=== PATIENT | female | born 1945 | race Caucasian/White ===

== ENCOUNTER → 2016-06-19 | Outpatient (CLI) | payer MEDICARE, OTHER | LOC: WI 09:23 | PROVIDERS: ATTEND Internal Medicine Medical Oncology | DX: M81.0 Age-related osteoporosis without current pathological fracture (principal) | CPT/HCPCS: 77080 ==

== ENCOUNTER 2018-05-05 20:56 | Inpatient (IN) | payer MEDICARE, OTHER ==
[2018-05-05] MEDS ORDERED: CEFAZOLIN 1 GM/D5W RTU 1 GM/50 ML RTUPB IV ONE (22:19)
[2018-05-05] MEDS ORDERED: DIPH/PERTUSS(ACELL)/TETANUS VAC/PF 0.5 ML SYR (>=10YO) IM ONE (22:20)
--- NOTE | 2018-05-05 22:29 | RADIOLOGY REPORT (SQ) ---
CT HEAD WITHOUT IV CONTRAST HISTORY: Fall. Headache. COMPARISON: None. TECHNIQUE: CT scan of the brain without IV contrast. This exam was performed according to our departmental dose-optimization program, which includes automated exposure control, adjustment of the mA and/or kV according to patient size and/or use of iterative reconstruction technique. FINDINGS: The ventricles, cisterns, and sulci are unremarkable. No focal white matter lesions are seen. No evidence of acute infarction, intracranial hemorrhage, extra-axial fluid collection, or midline shift. No air-fluid levels are seen in the paranasal sinuses to suggest acute sinusitis. IMPRESSION: No acute intracranial findings.
--- NOTE | 2018-05-05 22:32 | RADIOLOGY REPORT (SQ) ---
2 VIEWS OF THE RIGHT RIBS AND AP CHEST. HISTORY: Rib pain. COMPARISON: None. FINDINGS/IMPRESSION: There are nondisplaced fractures of the right eighth and ninth posterolateral ribs. The surrounding lungs are clear. No pneumothorax or pleural effusions are seen. IMPRESSION: Nondisplaced fractures of the right eighth and ninth posterolateral ribs.
[2018-05-05 22:58] LABS: ABSOLUTE LYMPHOCYTES (AUTO) 0.6 10^3/uL (0.5-4.7); ABSOLUTE MONOCYTES (AUTO) 1.1 10^3/uL (0.1-1.4); BASOPHILS % (AUTO) 0.3 % (0-2); EOSINOPHILS % (AUTO) 0.2 % (0-6); HEMATOCRIT 37.2 % (36.0-47.0); LYMPHOCYTES % (AUTO) 6.1 % (13-45); MEAN CORPUSCULAR HEMOGLOBIN 29.9 pg (27.0-33.4); MEAN CORPUSCULAR VOLUME 85 fl (80-97); MONOCYTES % (AUTO) 11.1 % (3-13); PLATELET COUNT 201 10^3/uL (150-450); RED BLOOD COUNT 4.35 10^6/uL (3.72-5.28); RED CELL DISTRIBUTION WIDTH 12.9 % (11.5-14.0); SEGMENTED NEUTROPHILS % (AUTO) 82.3 % (42-78); TOTAL CELLS COUNTED % (AUTO) 100 %; WHITE BLOOD COUNT 9.8 10^3/uL (4.0-10.5)
[2018-05-05 23:04] LABS: INTERNATIONAL RATION (INR) 0.87; PROTHROMBIN TIME 12.3 SEC (11.4-15.4)
[2018-05-05 23:24] LABS: ALANINE AMINOTRANSFERASE 39 U/L (9-52); ALBUMIN 4.1 g/dL (3.5-5.0); ALKALINE PHOSPHATASE 79 U/L (38-126); ANION GAP 6 (5-19); ASPARTATE AMINO TRANSFERASE 29 U/L (14-36); BILIRUBIN,TOTAL 0.4 mg/dL (0.2-1.3); BLOOD UREA NITROGEN 27 mg/dL (7-20); CALCIUM 10.2 mg/dL (8.4-10.2); CARBON DIOXIDE 24 mmol/L (22-30); CHLORIDE 101 mmol/L (98-107); CREATINE KINASE 105 U/L (30-135); GLUCOSE 123 mg/dL (75-110); POTASSIUM 4.5 mmol/L (3.6-5.0); SODIUM 131.3 mmol/L (137-145); TOTAL PROTEIN 6.1 g/dL (6.3-8.2)
[2018-05-05 23:35] LABS: CREATINE KINASE MB 1.57 ng/mL (<4.55); TROPONIN I < 0.012 ng/mL
[2018-05-05] MEDS ORDERED: NORMAL SALINE 1000 ML 1,000 ML IV ONE (23:39)
[2018-05-06 02:26] LABS: APPEARANCE,URINE CLEAR; BILIRUBIN,URINE NEGATIVE (NEGATIVE); COLOR,URINE STRAW; GLUCOSE, URINE NEGATIVE (NEGATIVE); KETONES,URINE NEGATIVE (NEGATIVE); LEUKOCYTE ESTERASE,URINE NEGATIVE (NEGATIVE); NITRITE,URINE NEGATIVE (NEGATIVE); PROTEIN,URINE NEGATIVE (NEGATIVE); URINE SPECIFIC GRAVITY 1.008; UROBILINOGEN,URINE NEGATIVE mg/dL (<2.0)
--- NOTE | 2018-05-06 03:50 | ER Document Report ---
Entered by PAM WEST SCRIBE 05/06/18 0230 Acting as scribe for:DUKE COLEMAN DO ED General - General Chief Complaint: Fall Stated Complaint: FALL/BACK AND RIB PAIN, HEAD PAIN Time Seen by Provider: 05/05/18 21:48 Information source: Patient Notes: 73-year-old female that presents to the emergency department today with complaints of multiple syncopal episodes prior to arrival. Patient states she had no precipitating symptoms prior to her syncopal events. Patient now comp lains of right-sided chest wall pain which she states occurred after one of her syncopal events. Patient states she thinks she injured her chest wall when she fell when passing out. TRAVEL OUTSIDE OF THE [place] IN LAST 30 DAYS: No - Related Data Allergies/Adverse Reactions: Penicillins Allergy (Verified 05/05/18 21:07) Sulfa (Sulfonamide Antibiotics) Allergy (Verified 05/05/18 21:07) Past Medical History - General Information source: Patient - Social History Smoking Status: Former Smoker Chew tobacco use (# tins/day): No Frequency of alcohol use: daily fawn Drug Abuse: None Family History: Reviewed & Not Pertinent Patient has suicidal ideation: No Patient has homicidal ideation: No - Past Medical History Cardiac Medical History: Reports: Hx Hypertension Pulmonary Medical History: Reports: Hx Pneumonia Renal/ Medical History: Denies: Hx Peritoneal Dialysis Past Surgical History: Reports: Hx Cholecystectomy - 1979, Hx Orthopedic Surgery - L knee replacement 2012 Review of Systems - Review of Systems Constitutional: No symptoms reported EENT: No symptoms reported Cardiovascular: See HPI, Syncope Respiratory: No symptoms reported Gastrointestinal: No symptoms reported Genitourinary: No symptoms reported Female Genitourinary: No symptoms reported Musculoskeletal: See HPI, Other - right chest wall pain Skin: See HPI, Other - skin tears Hematologic/Lymphatic: No symptoms reported Neurological/Psychological: No symptoms reported -: Yes All other systems reviewed and negative Physical Exam - Vital signs Vitals: Temp Pulse Resp BP Pulse Ox 97.9 F 94 16 149/80 H 100 05/05/18 21:10 05/05/18 21:10 05/05/18 21:10 05/05/18 21:10 05/05/18 21:10 Interpretation: Normal - General General appearance: Alert In distress: None - HEENT Head: Normocephalic, Other - Tenderness to posterior head Eyes: Normal Extraocular movements intact: Yes Pupils: PERRL Mucous membranes: Normal Neck: Other - No midline tenderness to palpation - Respiratory Respiratory status: No respiratory distress Chest status: Tender - Right lateral lower chest wall tenderness to palpation Breath sounds: Normal Chest palpation: Normal - Cardiovascular Rhythm: Regular Heart sounds: Normal auscultation Murmur: No - Abdominal Inspection: Normal Distension: No distension Bowel sounds: Normal Tenderness: Nontender Organomegaly: No organomegaly - Extremities General upper extremity: Normal ROM, Normal strength, Other - Bilateral upper extremities with bruising and skin tears in various stages of healing General lower extremity: Normal ROM, Normal strength - Neurological Neuro grossly intact: Yes Cognition: Normal Orientation: AAOx4 Bethany Coma Scale Eye Opening: Spontaneous Beth[place] Coma Scale Verbal: Oriented Candice Coma Scale Motor: Obeys Commands Bethany Coma Scale Total: 15 Speech: Normal Cranial nerves: Normal Cerebellar coordination: Normal Motor strength normal: LUE, RUE, LLE, RLE Sensory: Normal - Psychological Associated symptoms: Normal affect, Normal mood - Skin Skin Temperature: Warm Skin Moisture: Dry Skin Color: Normal Course - Re-evaluation Re-evalutation: 05/06/18 Patient is a 73-year-old female who had 2 episodes of syncope today of any lightheadedness, trouble breathing, or chest pain prior to. The first time, patient fell back and hit her head. The second time she fell downstairs. Chest x-ray showing 2 rib fractures. No acute findings on head CT. Patient has been given tetanus and Ancef for wounds. No acute findings on blood work except for some hyponatremia. Patient is very unstable on her feet. Discussed with the hospitalist service and will admit for syncope. Troponin negative. No acute findings and EKG. - Vital Signs Vital signs: Temp Pulse Resp BP Pulse Ox 97.9 F 94 17 159/95 H 100 05/05/18 21:10 05/05/18 21:10 05/06/18 03:01 05/06/18 03:01 05/06/18 03:01 - Laboratory Result Diagrams: 05/05/18 22:45 05/05/18 22:45 Laboratory results interpreted by me: 05/05/18 05/05/18 05/06/18 22:45 22:45 02:00 Seg Neutrophils % 82.3 H Lymphocytes % 6.1 L Sodium 131.3 L BUN 27 H Glucose 123 H Total Protein 6.1 L Urine Blood SMALL H - Diagnostic Test Radiology reviewed: Reports reviewed - EKG Interpretation by Me EKG shows normal: Sinus rhythm Rate: Normal Rhythm: NSR Discharge - Discharge Clinical Impression: Syncope and collapse, Skin tear Rib fractures Qualifiers: Encounter type: initial encounter Rib fracture type: multiple ribs Fracture type: closed Laterality: right Qualified Code(s): S22.41XA - Multiple fractures of ribs, right side, initial encounter for closed fracture Closed head injury Qualifiers: Encounter type: initial encounter Qualified Code(s): S09.90XA - Unspecified injury of head, initial encounter Condition: Stable Disposition: ADMITTED INPATIENT Admitting Provider: [facility] Admitted: Telemetry Scribe Attestation: 05/06/18 03:50 I personally performed the services described in the documentation, reviewed and edited the documentation which was dictated to the scribe in my presence, and it accurately records my words and actions. I personally performed the services described in the documentation, reviewed and edited the documentation which was dictated to the scribe in my presence, and it accurately records my words and actions.
[2018-05-06] MEDS ORDERED: ONDANSETRON 4 MG TAB.RAPDIS PO PRN (03:53)
[2018-05-06] MEDS ORDERED: MAG HYDROX/AL HYDROX/SIMETH SUSP 30 ML UDCUP PO PRN (03:53)
[2018-05-06] MEDS ORDERED: POTASSI CL 20 MEQ/D5-1/2NS 1L 1,000 ML IV PRN (03:53)
[2018-05-06] MEDS ORDERED: NALBUPHINE HCL INJ 10 MG/1 ML AMPULE IV PRN (03:59)
[2018-05-06] MEDS ORDERED: SCOPOLAMINE HYDROBROMIDE 1.5 MG PATCH.TD72 TD ONE (04:20)
--- NOTE | 2018-05-06 04:33 | PDOC H&P ---
History of Present Illness Admission Date/PCP: 05/06/2018 Patient complains of: Syncopal episodes x2 History of Present Illness: SAVAGE MCGEE is a 73 year old female who presents the emergency room with a 4-week history of balance disturbance and an acute syncopal episode x1 on the morning of 05/05/2018. She admits that for the last month she has been having difficulty with her balance and that she seems to constantly be off balance especially when she is trying to walk or stand. She is not sure that she always seems to fall to the left but it seems that is the way she usually fa lls. She has incurred several skin tears of her upper extremities in these numerous falls. He is being seen by Dr. Terrell who is evaluating pain in her right shoulder and arm and has found a cyst in her neck that is putting pressure on her spine with a recent MRI. On the day of admission she fell first in the kitchen and on that occasion she lost consciousness before she fell to the floor, her second fall was down several stairs but she was not unconscious at the time of that fall. She complains of numerous aches and pains that have developed since the time of the fall down the stairs. These include pain in her right groin, in the back of her head, in her right neck and shoulder and in her right chest laterally. She rates the pains as moderate and denies radiation from any of the areas of pain. She denies prior syncopal episodes and has not identified any aggravating or ameliorating factor for her syncope. In the emergency room she was found to have a negative CT scan of the head and chest x- ray showed rib fractures of the eighth and ninth right ribs. Because of patient's syncopal episode she was admitted for further evaluation and treatment. Past Medical History Cardiac Medical History: Reports: Hypertension Denies: Atrial Fibrillation, Coronary Artery Disease, DVT, Pulmonary Embolism Pulmonary Medical History: Reports: Pneumonia Denies: Asthma, Chronic Obstructive Pulmonary Disease (COPD) EENT Medical History: Reports: None Neurological Medical History: Denies: Multiple Sclerosis, Seizures Endocrine Medical History: Denies: Diabetes Mellitus Type 1, Diabetes Mellitus Type 2, Hyperthyroidism, Hypothyroidism Renal/ Medical History: Denies: Chronic Kidney Disease, Nephrolithiasis Malignancy Medical History: Reports: None GI Medical History: Denies: Cirrhosis, Hepatitis Musculoskeltal Medical History: Reports: Other - Cyst in the right posterior cervical region causing radiculopathy Denies: Arthritis, Gout Skin Medical History: Reports: Other - Multiple skin tears due to frequent falls Denies: Eczema, Psoriasis Psychiatric Medical History: Reports: General Anxiety Disorder Denies: Alcohol Dependency, Substance Abuse, Tobacco Dependency Traumatic Medical History: Denies: None Hematology: Denies: Anemia, Bleeding Tendencies Infectious Medical History: Reports: None Past Surgical History Past Surgical History: Reports: Cholecystectomy - 1979, Orthopedic Surgery - L knee replacement 2012 Social History Information Source: Patient Lives with: Family Smoking Status: Former Smoker Frequency of Alcohol Use: None Hx Recreational Drug Use: No Drugs: None Hx Prescription Drug Abuse: No - Advance Directive Resuscitation Status: Full Code Surrogate healthcare decision maker:: Son Family History Family History: Hypertension Parental Family History Reviewed: Yes Children Family History Reviewed: No Sibling(s) Family History Reviewed.: Yes Medication/Allergy Allergies/Adverse Reactions: Penicillins Allergy (Verified 05/05/18 21:07) Sulfa (Sulfonamide Antibiotics) Allergy (Verified 05/05/18 21:07) Review of Systems Constitutional: ABSENT: chills, fever(s) Eyes: ABSENT: visual disturbances, other - Ocular pain Ears: ABSENT: hearing changes, other - Ear pain Nose, Mouth, and Throat: ABSENT: mouth pain, sore throat Cardiovascular: PRESENT: chest pain - Right posterior lateral lower thoracic pain. ABSENT: dyspnea on exertion, edema, orthropnea, palpitations Respiratory: ABSENT: cough, dyspnea Gastrointestinal: ABSENT: abdominal pain, constipation, diarrhea, nausea, vomiting Genitourinary: ABSENT: dysuria, hematuria Musculoskeletal: ABSENT: deformity, joint swelling Integumentary: PRESENT: wounds - Multiple skin tears of the bilateral upper extremities, scalp laceration left occiput. ABSENT: pruritus, rash Neurological: PRESENT: other - Radicular pain right shoulder and upper arm. ABSENT: confusion, convulsions, memory loss, tremor(s) Psychiatric: PRESENT: anxiety. ABSENT: depression Endocrine: ABSENT: cold intolerance, heat intolerance Hematologic/Lymphatic: PRESENT: easy bleeding - With skin tears, easy bruising - Skin tears Physical Exam Vital Signs: Temp Pulse Resp BP Pulse Ox 97.9 F 94 18 162/97 H 100 05/05/18 21:10 05/05/18 21:10 05/06/18 02:01 05/06/18 02:01 05/06/18 02:01 Intake & Output 05/04/18 05/05/18 05/06/18 23:59 23:59 23:59 Intake Total 1000 Balance 1000 General appearance: PRESENT: no acute distress, cooperative Head exam: PRESENT: normocephalic. ABSENT: atraumatic - 2 cm laceration of the left occiput is noted Eye exam: PRESENT: conjunctiva pink, nystagmus - Severe, fast component to the left. ABSENT: scleral icterus Ear exam: PRESENT: normal external ear exam. ABSENT: bleeding, drainage Mouth exam: PRESENT: dry mucosa, neck supple Neck exam: ABSENT: thyromegaly, tracheal deviation Respiratory exam: PRESENT: chest wall tenderness - Tender over right posterior lateral lower ribs, clear to auscultation libia, symmetrical, unlabored Cardiovascular exam: PRESENT: RRR. ABSENT: clicks, gallop, rubs Pulses: PRESENT: normal radial pulses, normal dorsalis pedis pul Vascular exam: PRESENT: normal capillary refill. ABSENT: pallor GI/Abdominal exam: PRESENT: normal bowel sounds, soft Rectal exam: PRESENT: deferred Extremities exam: PRESENT: tenderness - Right groin region tender to palpation and range of motion. ABSENT: joint swelling, pedal edema Musculoskeletal exam: PRESENT: ambulatory. ABSENT: deformity, dislocation Neurological exam: PRESENT: alert, oriented to person, oriented to place, oriented to time, oriented to situation. ABSENT: CN II-XII grossly intact - Marked horizontal nystagmus is noted with the fast component to the left Psychiatric exam: PRESENT: appropriate affect, normal mood Skin exam: PRESENT: dry, jaundice, rash, urticaria, warm. ABSENT: other - 2 cm superficial left occipital scalp laceration as previously noted, not bleeding Results Laboratory Results: 05/05/18 22:45 05/05/18 22:45 05/05/18 05/05/18 05/06/18 22:45 22:45 02:00 WBC 9.8 RBC 4.35 Hgb 13.0 Hct 37.2 MCV 85 MCH 29.9 MCHC 35.0 RDW 12.9 Plt Count 201 Seg Neutrophils % 82.3 H Lymphocytes % 6.1 L Monocytes % 11.1 Eosinophils % 0.2 Basophils % 0.3 Absolute Neutrophils 8.0 Absolute Lymphocytes 0.6 Absolute Monocytes 1.1 Absolute Eosinophils 0.0 Absolute Basophils 0.0 Sodium 131.3 L Potassium 4.5 Chloride 101 Carbon Dioxide 24 Anion Gap 6 BUN 27 H Creatinine 0.82 Est GFR ( Amer) > 60 Est GFR (Non-Af Amer) > 60 Glucose 123 H Calcium 10.2 Total Bilirubin 0.4 AST 29 ALT 39 Alkaline Phosphatase 79 Total Protein 6.1 L Albumin 4.1 Urine Color STRAW Urine Appearance CLEAR Urine pH 6.0 Ur Specific Wol[place] 1.008 Urine Protein NEGATIVE Urine Glucose (UA) NEGATIVE Urine Ketones NEGATIVE Urine Blood SMALL H Urine Nitrite NEGATIVE Ur Leukocyte Esterase NEGATIVE Urine WBC (Auto) 1 Urine RBC (Auto) 0 05/05/18 05/05/18 22:45 22:45 Creatine Kinase 105 CK-MB (CK-2) 1.57 Troponin I < 0.012 Impressions: Head CT 05/05/18 21:50 IMPRESSION: No acute intracranial findings. Ribs w/Chest X-Ray 05/05/18 21:50 FINDINGS/IMPRESSION: There are nondisplaced fractures of the right eighth and ninth posterolateral ribs. The surrounding lungs are clear. No pneumothorax or pleural effusions are seen. IMPRESSION: Nondisplaced fractures of the right eighth and ninth posterolateral ribs. Assessment & Plan - Diagnosis (1) Acute labyrinthitis Qualifiers: Laterality: unspecified laterality Qualified Code(s): H83.09 - Labyrinthitis, unspecified ear Is this a current diagnosis for this admission?: Yes Plan: Patient be treated with a Transderm scopolamine patch initially to provide symptomatic relief. Further evaluation will be undertaken to confirm the diagnosis of acute labyrinthitis or to establish a different diagnosis as the etiology of this problem. This will include a MRI of the head. (2) Laceration of occipital region of scalp without complication Qualifiers: Encounter type: initial encounter Qualified Code(s): S01.01XA - Laceration without foreign body of scalp, initial encounter Is this a current diagnosis for this admission?: Yes Plan: Routine post repair wound cares will be followed according to the instructions given by the ER physician who is responsible for repairing laceration. (3) Right rib fracture Qualifiers: Encounter type: initial encounter Rib fracture type: multiple ribs Fracture type: closed Qualified Code(s): S22.41XA - Multiple fractures of ribs, right side, initial encounter for closed fracture Is this a current diagnosis for this admission?: Yes Plan: Patient will use Nubain 10 mg IV every 3 hours as needed for pain of rib fractures or other injuries. (4) Skin tear Is this a current diagnosis for this admission?: Yes Plan: Patient has dressings placed on her skin tears and these will be maintained and changed as required. She has received tetanus prophylaxis in the emergency room. (5) Syncope and collapse Is this a current diagnosis for this admission?: Yes Plan: Patient will be evaluated for syncope with a carotid Doppler study, and echocardiogram and an MRI of her brain. She will be observed on telemetry and a cardiology consult may be obtained at the discretion of her daytime hospitalist. - Time Time Spent: 30 to 50 Minutes Critical Time spent with patient: Less than 15 minutes Anticipated discharge: Home - Inpatient Certification Based on my medical assessment, after consideration of the patient's comorbidities, presenting symptoms, or acuity I expect that the services needed warrant INPATIENT care.: Yes I certify that my determination is in accordance with my understanding of Medicare's requirements for reasonable and necessary INPATIENT services [42 CFR 412.3e].: Yes Medical Necessity: Need Close Monitoring Due to Risk of Patient Decompensation, Need For Continuous Telemetry Monitoring, Need for Neurological Checks, Risk of Complication if Not Cared For in Hospital
[2018-05-06 05:21] LABS: CREATINE KINASE MB 2.63 ng/mL (<4.55); TROPONIN I 0.015 ng/mL
[2018-05-06] MEDS ORDERED: SCOPOLAMINE HYDROBROMIDE 1.5 MG PATCH.TD72 ONE (06:18)
[2018-05-06] MEDS: HEPARIN SOD (PORCINE) 5,000 UNIT/ML 1 ML SYRINGE SUBCUT SCH ×3 (06:25→22:53)
--- NOTE | 2018-05-06 07:40 | EKG REPORT ---
SEVERITY:- BORDERLINE ECG - SINUS RHYTHM BORDERLINE ST ELEVATION, INFERIOR LEADS : Confirmed by: Rudi Bhandari MD 06-May-2018 07:39:42
[2018-05-06] MEDS: ONDANSETRON HCL INJ/PF 4 MG/2 ML SDV IV PRN ×3 (08:23→20:25)
[2018-05-06 10:35] LABS: CREATINE KINASE MB 2.67 ng/mL (<4.55); TROPONIN I 0.025 ng/mL
[2018-05-06] MEDS: FAMOTIDINE 20 MG TABLET PO SCH ×2 (11:44→22:54)
[2018-05-06] MEDS: ACETAMINOPHEN 325 MG TABLET PO PRN (11:44)
[2018-05-06] MEDS: DOCUSATE SODIUM 100 MG CAPSULE PO SCH ×2 (11:44→17:52)
[2018-05-06] MEDS ORDERED: (PENDING PHARMACY ID) (Lisinopril [Zestril] 20 MG) PO SCH (12:00)
[2018-05-06] MEDS: LORAZEPAM 0.5 MG TABLET PO PRN ×2 (13:44→22:54)
[2018-05-06] MEDS: LISINOPRIL 10 MG TABLET PO SCH (13:44)
[2018-05-06] MEDS: METOPROLOL SUCCINATE 25 MG TAB.SR.24H PO SCH (13:45)
[2018-05-06] MEDS: CALCIUM CARBONATE 500 MG TABLET PO SCH (13:45)
--- NOTE | 2018-05-06 14:08 | RADIOLOGY REPORT (SQ) ---
EXAM DESCRIPTION: CAROTID DOPPLER COMPLETED DATE/TIME: 05/06/2018 11:29 am REASON FOR STUDY: syncope COMPARISON: None. TECHNIQUE: Grayscale ultrasound, Doppler velocity and spectra, and color Doppler images acquired of the extra-cranial carotid and vertebral arteries. Images stored on PACS. LIMITATIONS: None. FINDINGS: RIGHT CAROTID CCA Velocities: Within normal limits. ICA Velocities Peak systolic 98 cm/s. End diastolic 31 cm/s. Proximal ICA/CCA peak systolic ratio 2.0. Spectra normal. No significant plaque. LEFT CAROTID CCA Velocities: Within normal limits. ICA Velocities Peak systolic 106 cm/s. End diastolic 40 cm/s. Proximal ICA/CCA peak systolic ratio 1.2. Spectra normal. No significant plaque. VERTEBRAL ARTERIES: Antegrade flow. Normal waveforms. SUBCLAVIAN ARTERIES: No finding. OTHER: No other significant finding. IMPRESSION: NO HEMODYNAMICALLY SIGNIFICANT STENOSIS. COMMENT: Quality ID #[id number]: Velocity criteria are extrapolated from the diameter data as defined by t rene Society of Radiologists in Ultrasound Consensus Conference. Radiology 2003: 229; 340-346. TECHNICAL DOCUMENTATION: JOB ID: [id number] [employer]- All Rights Reserved Reading location - IP/workstation name: [email or web address]
[2018-05-06] MEDS: FLUTICASONE NASAL SPRAY 50 MCG/SPRY 120 SPRAY/16 GM NAREB SCH ×2 (16:09→22:53)
[2018-05-06] MEDS: CARBOXYMETHYLCELLULOSE SOD 0.5% 0.4 ML DROPERETTE OU PRN ×2 (16:13→22:53)
[2018-05-06] MEDS ORDERED: OXYCODONE-ACETAMINOPHEN 5-325 MG TABLET PO ONE (16:15)
[2018-05-06 17:12] LABS: CREATINE KINASE MB 2.58 ng/mL (<4.55); TROPONIN I 0.021 ng/mL
[2018-05-06] MEDS ORDERED: LIDOCAINE 5% (700 MG) TRANSDERMAL ADH..PATCH TP ONE (18:37)
--- NOTE | 2018-05-06 18:37 | PDOC PROGRESS REPORT ---
Subjective Progress Note for:: 05/06/18 Subjective:: SAVAGE MCGEE is a 73 year old female who presents the emergency room with a 4-week history of balance disturbance and an acute syncopal episode x1 on the morning of 05/05/2018. She admits that for the last month she has been having difficulty with her balance and that she seems to constantly be off balance especially when she is trying to walk or stand. She is not sure that she always seems to fall to the left but it seems that is the way she usually falls. She has incurred several skin tears of her upper extremities in these numerous falls. He is being seen by Dr. Terrell who is evaluating pain in her right shoulder and arm and has found a cyst in her neck that is putting pressure on her spine with a recent MRI. On the day of admission she fell first in the kitchen and on that occasion she lost consciousness before she fell to the floor, her second fall was down several stairs but she was not unconscious at the time of that fall. She complains of numerous aches and pains that have developed since the time of the fall down the stairs. These include pain in her right groin, in the back of her head, in her right neck and shoulder and in her right chest laterally. She rates the pains as moderate and denies radiation from any of the areas of pain. She denies prior syncopal episodes and has not identified any aggravating or ameliorating factor for her syncope. In the emergency room she was found to have a negative CT scan of the head and chest x- ray showed rib fractures of the eighth and ninth right ribs. Because of patient's syncopal episode she was admitted for further evaluation and treatment. No acute events overnight. Patient has been complaining of anxiety, back pain, left groin pain. Has not had any recurrence of her syncope. Patient denies any fever, chills, chest pain, shortness of breath, diarrhea, constipation or urinary symptoms. Patient still pending for her syncopal episode workup. Could not tolerate MRI due to anxiety and right groin pain. Reason For Visit: SYNCOPAL EPISODE Physical Exam Vital Signs: Temp Pulse Resp BP Pulse Ox 98.0 F 99 18 148/79 H 98 05/06/18 11:37 05/06/18 14:00 05/06/18 11:37 05/06/18 11:37 05/06/18 11:37 Intake & Output 05/05/18 05/06/18 05/07/18 06:59 06:59 06:59 Intake Total 1050 1087.5 Balance 1050 1087.5 Weight 46.5 kg General appearance: PRESENT: no acute distress, well-developed, well-nourished Head exam: PRESENT: normocephalic, other - Posterior head occipital region laceration, wound is clean no sign of infection no bleeding. Respiratory exam: PRESENT: clear to auscultation libia. ABSENT: rales, rhonchi, wheezes Cardiovascular exam: PRESENT: RRR. ABSENT: diastolic murmur, rubs, systolic murmur Musculoskeletal exam: PRESENT: full ROM, normal inspection, tenderness - Tenderness to the medial aspect of right upper thigh. Neurological exam: PRESENT: alert, awake, oriented to person, oriented to place, oriented to time, oriented to situation, CN II-XII grossly intact. ABSENT: motor sensory deficit Results Laboratory Results: 05/05/18 22:45 05/05/18 22:45 05/05/18 05/05/18 05/05/18 22:45 22:45 22:45 WBC 9.8 RBC 4.35 Hgb 13.0 Hct 37.2 MCV 85 MCH 29.9 MCHC 35.0 RDW 12.9 Plt Count 201 Seg Neutrophils % 82.3 H Lymphocytes % 6.1 L Monocytes % 11.1 Eosinophils % 0.2 Basophils % 0.3 Absolute Neutrophils 8.0 Absolute Lymphocytes 0.6 Absolute Monocytes 1.1 Absolute Eosinophils 0.0 Absolute Basophils 0.0 Sodium 131.3 L Potassium 4.5 Chloride 101 Carbon Dioxide 24 Anion Gap 6 BUN 27 H Creatinine 0.82 Est GFR ( Amer) > 60 Est GFR (Non-Af Amer) > 60 Glucose 123 H Calcium 10.2 Total Bilirubin 0.4 AST 29 ALT 39 Alkaline Phosphatase 79 Total Protein 6.1 L Albumin 4.1 TSH 1.34 Urine Color Urine Appearance Urine pH Ur Specific [place] Urine Protein Urine Glucose (UA) Urine Ketones Urine Blood Urine Nitrite Ur Leukocyte Esterase Urine WBC (Auto) Urine RBC (Auto) 05/06/18 02:00 WBC RBC Hgb Hct MCV MCH MCHC RDW Plt Count Seg Neutrophils % Lymphocytes % Monocytes % Eosinophils % Basophils % Absolute Neutrophils Absolute Lymphocytes Absolute Monocytes Absolute Eosinophils Absolute Basophils Sodium Potassium Chloride Carbon Dioxide Anion Gap BUN Creatinine Est GFR ( Amer) Est GFR (Non-Af Amer) Glucose Calcium Total Bilirubin AST ALT Alkaline Phosphatase Total Protein Albumin TSH Urine Color STRAW Urine Appearance CLEAR Urine pH 6.0 Ur Specific [place] 1.008 Urine Protein NEGATIVE Urine Glucose (UA) NEGATIVE Urine Ketones NEGATIVE Urine Blood SMALL H Urine Nitrite NEGATIVE Ur Leukocyte Esterase NEGATIVE Urine WBC (Auto) 1 Urine RBC (Auto) 0 05/05/18 05/05/18 05/06/18 22:45 22:45 02:00 Creatine Kinase 105 CK-MB (CK-2) 1.57 Troponin I < 0.012 0.013 05/06/18 05/06/18 05/06/18 04:35 04:35 09:32 Creatine Kinase 381 H 409 H CK-MB (CK-2) 2.63 Troponin I 0.015 05/06/18 05/06/18 05/06/18 09:32 16:05 16:05 Creatine Kinase 430 H CK-MB (CK-2) 2.67 2.58 Troponin I 0.025 0.021 Impressions: Head CT 05/05/18 21:50 IMPRESSION: No acute intracranial findings. Ribs w/Chest X-Ray 05/05/18 21:50 FINDINGS/IMPRESSION: There are nondisplaced fractures of the right eighth and ninth posterolateral ribs. The surrounding lungs are clear. No pneumothorax or pleural effusions are seen. IMPRESSION: Nondisplaced fractures of the right eighth and ninth posterolateral ribs. Carotid Doppler Study 05/06/18 00:00 IMPRESSION: NO HEMODYNAMICALLY SIGNIFICANT STENOSIS. Assessment & Plan - Diagnosis (1) Syncope and collapse Is this a current diagnosis for this admission?: Yes Plan: No recurrence. Pending 2D echo, brain MRI, carotid Doppler. Continue telemetry, neurochecks and fall precautions. (2) Acute labyrinthitis Qualifiers: Laterality: unspecified laterality Qualified Code(s): H83.09 - Labyrinthitis, unspecified ear Is this a current diagnosis for this admission?: Yes Plan: Patient started on transdermal scopolamine patch. Some symptomatic relief. Still pending MRI of the head. (3) Laceration of occipital region of scalp without complication Qualifiers: Encounter type: initial encounter Qualified Code(s): S01.01XA - Laceration without foreign body of scalp, initial encounter Is this a current diagnosis for this admission?: Yes Plan: Continue wound care. Supportive measures. (4) Right rib fracture Qualifiers: Encounter type: initial encounter Rib fracture type: multiple ribs Fracture type: closed Qualified Code(s): S22.41XA - Multiple fractures of ribs, right side, initial encounter for closed fracture Is this a current diagnosis for this admission?: Yes Plan: Patient was started on new pain but she said it was making her feel unwell. Patient was switched to Percocet. Will start on lidocaine patch. Continue supportive measures. Continue fall precautions. (5) Skin tear Is this a current diagnosis for this admission?: Yes Plan: Patient has dressing placed on bilateral upper extremity skin tears. Wound care. Received tetanus prophylaxis in ED.
[2018-05-07] MEDS: OXYCODONE-ACETAMINOPHEN 5-325 MG TABLET PO PRN ×3 (00:47→19:49)
[2018-05-07] MEDS: HEPARIN SOD (PORCINE) 5,000 UNIT/ML 1 ML SYRINGE SUBCUT SCH ×3 (05:32→21:11)
[2018-05-07 06:22] LABS: ABSOLUTE BASOPHILS # (AUTO) 0.1 10^3/uL (0.0-0.2); ABSOLUTE EOSINOPHILS # (AUTO) 0.1 10^3/uL (0.0-0.6); ABSOLUTE LYMPHOCYTES (AUTO) 1.2 10^3/uL (0.5-4.7); ABSOLUTE MONOCYTES (AUTO) 1.2 10^3/uL (0.1-1.4); ABSOLUTE NEUT (AUTO) 5.1 10^3/uL (1.7-8.2); BASOPHILS % (AUTO) 0.9 % (0-2); EOSINOPHILS % (AUTO) 0.8 % (0-6); HEMATOCRIT 38.7 % (36.0-47.0); HEMOGLOBIN 13.5 g/dL (12.0-15.5); LYMPHOCYTES % (AUTO) 16.3 % (13-45); MEAN CORPUSCULAR HEMOGLOBIN 29.5 pg (27.0-33.4); MEAN CORPUSCULAR HGB CONC 34.9 g/dL (32.0-36.0); MEAN CORPUSCULAR VOLUME 85 fl (80-97); MONOCYTES % (AUTO) 15.3 % (3-13); PLATELET COUNT 194 10^3/uL (150-450); RED BLOOD COUNT 4.57 10^6/uL (3.72-5.28); RED CELL DISTRIBUTION WIDTH 12.9 % (11.5-14.0); SEGMENTED NEUTROPHILS % (AUTO) 66.7 % (42-78); TOTAL CELLS COUNTED % (AUTO) 100 %; WHITE BLOOD COUNT 7.6 10^3/uL (4.0-10.5)
[2018-05-07 06:58] LABS: FREE T3 3.88 pg/mL (2.77-5.27); FREE T4 (FREE THYROXINE) 1.87 ng/dL (0.78-2.19)
[2018-05-07 07:12] LABS: ALANINE AMINOTRANSFERASE 46 U/L (9-52); ALBUMIN 4.1 g/dL (3.5-5.0); ALKALINE PHOSPHATASE 53 U/L (38-126); ANION GAP 9 (5-19); ASPARTATE AMINO TRANSFERASE 56 U/L (14-36); BILIRUBIN,DIRECT 0.1 mg/dL (0.0-0.4); BLOOD UREA NITROGEN 10 mg/dL (7-20); CALCIUM 10.6 mg/dL (8.4-10.2); CARBON DIOXIDE 23 mmol/L (22-30); CHLORIDE 101 mmol/L (98-107); CHOLESTEROL 159.18 mg/dL (0-200); GLUCOSE 103 mg/dL (75-110); POTASSIUM 4.7 mmol/L (3.6-5.0); SODIUM 132.8 mmol/L (137-145); THYROID STIMULATING HORMONE 1.6 uIU/mL (0.47-4.68); TOTAL PROTEIN 6.1 g/dL (6.3-8.2); TRIGLYCERIDES 69 mg/dL (<150)
[2018-05-07 07:24] LABS: DIRECT LDL < 30 mg/dL (<100)
[2018-05-07] MEDS: FLUTICASONE NASAL SPRAY 50 MCG/SPRY 120 SPRAY/16 GM NAREB SCH ×2 (10:15→21:15)
[2018-05-07] MEDS: DOCUSATE SODIUM 100 MG CAPSULE PO SCH ×2 (10:15→18:21)
[2018-05-07] MEDS: CALCIUM CARBONATE 500 MG TABLET PO SCH (10:16)
[2018-05-07] MEDS: METOPROLOL SUCCINATE 25 MG TAB.SR.24H PO SCH (10:16)
[2018-05-07] MEDS: FAMOTIDINE 20 MG TABLET PO SCH ×2 (10:16→21:15)
[2018-05-07] MEDS: LISINOPRIL 10 MG TABLET PO SCH (10:16)
[2018-05-07] MEDS: LORAZEPAM 0.5 MG TABLET PO PRN ×2 (11:27→21:15)
--- NOTE | 2018-05-07 12:28 | RADIOLOGY REPORT (SQ) ---
EXAM DESCRIPTION: MRI HEAD COMBO COMPLETED DATE/TIME: 05/07/2018 12:13 pm REASON FOR STUDY: off balance, syncope COMPARISON: None. TECHNIQUE: Multiplanar imaging includes noncontrasted T1, T2, FLAIR, diffusion with ADC map and post gadolinium contrast T1 sequences. Images stored on PACS. CONTRAST TYPE AND DOSE: 10 mL Dotarem. RENAL FUNCTION: Creatinine 0.77 GFR greater than 60 LIMITATIONS: None. FINDINGS: ANATOMY: No anomalies. Normal vascular flow voids. Pituitary fossa normal. CSF SPACES: Normal in size and contour. No hemorrhage. CEREBRUM: Sulci and gyri normal in size and contour. Small scattered areas of increased white matter signal on FLAIR imaging. No evidence of hemorrhage, mass, or extraaxial fluid collection. No abnorma l enhancement post contrast. POSTERIOR FOSSA: No signal alteration. No hemorrhage. No edema, masses, or mass effect. Internal ora tory canals, cerebellopontine angles, mastoids normal. No enhancing lesions. No abnormal enhancement post contrast. DIFFUSION IMAGING: Negative for acute or subacute infarction. ORBITS: No masses. Globes normal. PARANASAL SINUSES: There is a small mucous retention cyst in the right maxillary sinus. OTHER: No other significant finding. IMPRESSION: Mild chronic microvascular ischemia with no acute intracranial imaging findings. Mild r ight maxillary sinus disease. EVIDENCE OF ACUTE STROKE: NO. TECHNICAL DOCUMENTATION: JOB ID: [id number] [employer]- All Rights Reserved Reading location - IP/workstation name: [email or web address]
--- NOTE | 2018-05-07 17:24 | PDOC PROGRESS REPORT ---
Subjective Progress Note for:: 05/07/18 Subjective:: SAVAGE MCGEE is a 73 year old female who presents the emergency room with a 4-week history of balance disturbance and an acute syncopal episode x1 on the morning of 05/05/2018. She admits that for the last month she has been having difficulty with her balance and that she seems to constantly be off balance especially when she is trying to walk or stand. She is not sure that she always seems to fall to the left but it seems that is the way she usually falls. She has incurred several skin tears of her upper extremities in these numerous falls. He is being seen by Dr. Terrell who is evaluating pain in her right shoulder and arm and has found a cyst in her neck that is putting pressure on her spine with a recent MRI. On the day of admission she fell first in the kitchen and on that occasion she lost consciousness before she fell to the floor, her second fall was down several stairs but she was not unconscious at the time of that fall. She complains of numerous aches and pains that have developed since the time of the fall down the stairs. These include pain in her right groin, in the back of her head, in her right neck and shoulder and in her right chest laterally. She rates the pains as moderate and denies radiation from any of the areas of pain. She denies prior syncopal episodes and has not identified any aggravating or ameliorating factor for her syncope. In the emergency room she was found to have a negative CT scan of the head and chest x- ray showed rib fractures of the eighth and ninth right ribs. Because of patient's syncopal episode she was admitted for further evaluation and treatment. No acute events overnight. Late morning today patient was trying to get out of the bed and turn on the light and she states she tripped and fell, hitting left side of her head on the arm of the chair denies denies any preceding vertigo, lightheadedness, chest pain, palpitation prior to the fall. Her anxiety much improved since admission, her groin pain also has improved. She had physical therapy today was able to walk with the help of front-wheeled walker. Her home physical therapy was recommended. I had 2 encounters with the patient today on my both encounters patient very pleasant, comfortably sitting in her chair, in no apparent distress, her anxiety has much improved, acquiring about when she can go home. Denies any chest pain, shortness of breath, nausea, vomiting, diarrhea, constipation or any urinary symptoms. MRI head was negative for any acute stroke, Doppler negative for any hemodynamically significant stenosis. Pending 2D echo. Reason For Visit: SYNCOPAL EPISODE Physical Exam Vital Signs: Temp Pulse Resp BP Pulse Ox 98.6 F 86 20 157/70 H 99 05/07/18 16:08 05/07/18 16:08 05/07/18 16:08 05/07/18 16:08 05/07/18 16:08 Intake & Output 05/06/18 05/07/18 05/08/18 06:59 06:59 06:59 Intake Total 1050 1087.5 320 Balance 1050 1087.5 320 Weight 46.5 kg General appearance: PRESENT: no acute distress, thin, well-developed, well- nourished Head exam: PRESENT: normocephalic, other - Left occipital laceration prior to a dmission. Wound looks clean. Eye exam: PRESENT: EOMI, PERRLA Ear exam: PRESENT: normal external ear exam. ABSENT: bleeding, TM's normal bilaterally, other Neck exam: ABSENT: carotid bruit, JVD, lymphadenopathy, thyromegaly Respiratory exam: PRESENT: clear to auscultation libia. ABSENT: rales, rhonchi, wheezes Cardiovascular exam: PRESENT: RRR. ABSENT: diastolic murmur, rubs, systolic murmur GI/Abdominal exam: PRESENT: normal bowel sounds, soft. ABSENT: distended, guarding, mass, organolmegaly, rebound, tenderness Extremities exam: PRESENT: full ROM. ABSENT: calf tenderness, clubbing, pedal edema Neurological exam: PRESENT: alert, awake, oriented to person, oriented to place, oriented to time, oriented to situation, CN II-XII grossly intact. ABSENT: motor sensory deficit Results Laboratory Results: 05/07/18 05:49 05/07/18 05:49 05/07/18 05/07/18 05/07/18 05:49 05:49 05:49 WBC 7.6 RBC 4.57 Hgb 13.5 Hct 38.7 MCV 85 MCH 29.5 MCHC 34.9 RDW 12.9 Plt Count 194 Seg Neutrophils % 66.7 Lymphocytes % 16.3 Monocytes % 15.3 H Eosinophils % 0.8 Basophils % 0.9 Absolute Neutrophils 5.1 Absolute Lymphocytes 1.2 Absolute Monocytes 1.2 Absolute Eosinophils 0.1 Absolute Basophils 0.1 Sodium 132.8 L Potassium 4.7 Chloride 101 Carbon Dioxide 23 Anion Gap 9 BUN 10 Creatinine 0.77 Est GFR ( Amer) > 60 Est GFR (Non-Af Amer) > 60 Glucose 103 Calcium 10.6 H Magnesium 2.0 Total Bilirubin 1.0 AST 56 H ALT 46 Alkaline Phosphatase 53 Total Protein 6.1 L Albumin 4.1 Triglycerides 69 Cholesterol 159.18 LDL Cholesterol Direct < 30 VLDL Cholesterol 14.0 HDL Cholesterol 127 TSH 1.60 Free T4 1.87 Free T3 pg/mL 3.88 05/05/18 05/05/18 05/06/18 22:45 22:45 02:00 Creatine Kinase 105 CK-MB (CK-2) 1.57 Troponin I < 0.012 0.013 05/06/18 05/06/18 05/06/18 04:35 04:35 09:32 Creatine Kinase 381 H 409 H CK-MB (CK-2) 2.63 Troponin I 0.015 05/06/18 05/06/18 05/06/18 09:32 16:05 16:05 Creatine Kinase 430 H CK-MB (CK-2) 2.67 2.58 Troponin I 0.025 0.021 Impressions: Head CT 05/05/18 21:50 IMPRESSION: No acute intracranial findings. Ribs w/Chest X-Ray 05/05/18 21:50 FINDINGS/IMPRESSION: There are nondisplaced fractures of the right eighth and ninth posterolateral ribs. The surrounding lungs are clear. No pneumothorax or pleural effusions are seen. IMPRESSION: Nondisplaced fractures of the right eighth and ninth posterolateral ribs. Carotid Doppler Study 05/06/18 00:00 IMPRESSION: NO HEMODYNAMICALLY SIGNIFICANT STENOSIS. Head MRI 05/07/18 00:00 IMPRESSION: Mild chronic microvascular ischemia with no acute intracranial imaging findings. Mild right maxillary sinus disease. EVIDENCE OF ACUTE STROKE: NO. Assessment & Plan - Diagnosis (1) Syncope and collapse Is this a current diagnosis for this admission?: Yes Plan: MRI brain and carotid Doppler negative for any acute abnormalities. Pending echo. Continue telemetry, neurochecks and fall precautions. (2) Acute labyrinthitis Qualifiers: Laterality: unspecified laterality Qualified Code(s): H83.09 - Labyrinthitis, unspecified ear Is this a current diagnosis for this admission?: Yes Plan: Patient started on transdermal scopolamine patch. Some symptomatic relief. MRI brain negative. Outpatient ENT follow-up. (3) Laceration of occipital region of scalp without complication Qualifiers: Encounter type: initial encounter Qualified Code(s): S01.01XA - Laceration without foreign body of scalp, initial encounter Is this a current diagnosis for this admission?: Yes Plan: Continue wound care. Supportive measures. (4) Right rib fracture Qualifiers: Encounter type: initial encounter Rib fracture type: multiple ribs Fracture type: closed Qualified Code(s): S22.41XA - Multiple fractures of ribs, right side, initial encounter for closed fracture Is this a current diagnosis for this admission?: Yes Plan: Patient was started on new pain but she said it was making her feel unwell. Patient was switched to Percocet. Started on lidocaine patch, Continue supportive measures. Continue fall precautions. (5) Skin tear Is this a current diagnosis for this admission?: Yes Plan: Patient has dressing placed on bilateral upper extremity skin tears. Wound care. Received tetanus prophylaxis in ED. (6) Anxiety Is this a current diagnosis for this admission?: Yes Plan: Much improved after restarting home meds. Patient has been chronically taking benzos for anxiety which may have contributed to her fall. Patient was advised to follow-up with PCP about possibly being weaned off of her benzodiazepines and switched to an alternative medication.
[2018-05-07] MEDS: MAGNESIUM HYDROXIDE SUSP 30 ML UDCUP PO PRN (18:21)
--- NOTE | 2018-05-08 00:46 | XCELERA REPORT ---
[address] [address] Transthoracic Echocardiogram Report Name: SAVAGE MCGEE Age: 73 yrs Gender: Female : 1945 Patient Status: Inpatient Patient Location: [address] [place] [address] Study Date: 05/06/2018 11:17 AM Procedure: A two-dimensional transthoracic echocardiogram with color flow and Doppler was performed. Study Quality: Fair. Reason For Study: syncope History: syncope. Ordering Physician: EVELINA CEBALLOS Performed By: Eleanor Cheek Interpretation Summary The left ventricle is normal in size. There is normal left ventricular wall thickness. LV EF is 65% The left ventricular ejection fraction is normal. Doppler measurements suggest normal left ventricular diastolic function The left ventricular wall motion is normal. There is no thrombus. The right ventricle is normal in size and function. The right atrium is normal. The left atrial size is normal. The interatrial septum is intact with no evidence for an atrial septal defect. There is no Doppler evidence for an interatrial shunt There is no evidence of mitral valve prolapse. There is no vegetation seen on the mitral valve. There is no mitral valve stenosis. There is a trace amount of mitral regurgitation There is no aortic valvular vegetation. There is no aortic valve stenosis There is no LVOT obstruction. No aortic regurgitation is present. There is no tricuspid stenosis. There is a trace to mild amount of tricuspid regurgitation There is moderate pulmonary hypertension by echo RVSP is 53 to 58 mm of Hg , with RA mean of 5 to 10. There is no pulmonic valvular stenosis. There is no pulmonic valvular regurgitation. The aortic root is normal size. The inferior vena cava appeared normal and decreased > 50% with respiration (RAP 5-10 mmHg) There is no pericardial effusion. MMode/2D Measurements & Calculations RVDd: 2.7 cm LVIDd: 4.4 cm FS: 34.7 % Ao root diam: 2.6 cm IVSd: 0.76 cm LVIDs: 2.8 cm EDV(Teich): 85.8 ml Ao root area: 5.4 cm2 LVPWd: 1.1 cm ESV(Teich): 30.7 ml EF(Teich): 64.2 % Doppler Measurements & Calculations MV E max jacqueline: MV dec slope: Ao V2 max: LV V1 max P.8 cm/sec 164.3 cm/sec 6.3 mmHg MV A max jacqueline: 574.3 cm/sec2 Ao max PG: LV V1 max: 82.6 cm/sec MV dec time: 0.13 sec 10.8 mmHg 125.6 cm/sec MV E/A: 0.92 LV dP/dt: 2828 mmHg/s PA V2 max: TR max jacqueline: 78.4 cm/sec 345.5 cm/sec PA max P.5 mmHgTR max P.8 mmHg Left Ventricle The left ventricle is normal in size. There is normal left ventricular wall thickness. LV EF is 65%. The left ventricular ejection fraction is normal. Doppler measurements suggest normal left ventricular diastolic function. The left ventricular wall motion is normal. There is no thrombus. There is no ventricular septal defect visualized. Right Ventricle The right ventricle is normal in size and function. Atria The right atrium is normal. The left atrial size is normal. The interatrial septum is intact with no evidence for an atrial septal defect. There is no Doppler evidence for an interatrial shunt. Mitral Valve There is no evidence of mitral valve prolapse. There is no vegetation seen on the mitral valve. There is no mitral valve stenosis. There is a trace amount of mitral regurgitation. Aortic Valve There is no aortic valvular vegetation. There is no aortic valve stenosis. There is no LVOT obstruction. No aortic regurgitation is present. Tricuspid Valve There is no tricuspid stenosis. There is a trace to mild amount of tricuspid regurgitation. There is moderate pulmonary hypertension by echo. RVSP is 53 to 58 mm of Hg , with RA mean of 5 to 10. Pulmonic Valve There is no pulmonic valvular stenosis. There is no pulmonic valvular regurgitation. Great Vessels The aortic root is normal size. The inferior vena cava appeared normal and decreased > 50% with respiration (RAP 5-10 mmHg). Effusions There is no pericardial effusion. : EVELINA CEBALLOS > Cielo Seay
[2018-05-08] MEDS: HEPARIN SOD (PORCINE) 5,000 UNIT/ML 1 ML SYRINGE SUBCUT SCH ×3 (04:59→21:22)
[2018-05-08 05:04] LABS: ABSOLUTE EOSINOPHILS # (AUTO) 0.1 10^3/uL (0.0-0.6); ABSOLUTE MONOCYTES (AUTO) 1.1 10^3/uL (0.1-1.4); ABSOLUTE NEUT (AUTO) 3.7 10^3/uL (1.7-8.2); BASOPHILS % (AUTO) 0.7 % (0-2); EOSINOPHILS % (AUTO) 1.9 % (0-6); HEMATOCRIT 37.1 % (36.0-47.0); HEMOGLOBIN 12.8 g/dL (12.0-15.5); LYMPHOCYTES % (AUTO) 17.5 % (13-45); MEAN CORPUSCULAR HEMOGLOBIN 29.2 pg (27.0-33.4); MEAN CORPUSCULAR HGB CONC 34.6 g/dL (32.0-36.0); MEAN CORPUSCULAR VOLUME 84 fl (80-97); MONOCYTES % (AUTO) 18.3 % (3-13); PLATELET COUNT 181 10^3/uL (150-450); RED BLOOD COUNT 4.39 10^6/uL (3.72-5.28); RED CELL DISTRIBUTION WIDTH 12.9 % (11.5-14.0); SEGMENTED NEUTROPHILS % (AUTO) 61.6 % (42-78); TOTAL CELLS COUNTED % (AUTO) 100 %
[2018-05-08 05:24] LABS: ALANINE AMINOTRANSFERASE 40 U/L (9-52); ALBUMIN 3.8 g/dL (3.5-5.0); ALKALINE PHOSPHATASE 48 U/L (38-126); ANION GAP 8 (5-19); ASPARTATE AMINO TRANSFERASE 58 U/L (14-36); BILIRUBIN,DIRECT 0.1 mg/dL (0.0-0.4); BILIRUBIN,TOTAL 0.8 mg/dL (0.2-1.3); BLOOD UREA NITROGEN 15 mg/dL (7-20); CALCIUM 10.4 mg/dL (8.4-10.2); CARBON DIOXIDE 27 mmol/L (22-30); CHLORIDE 101 mmol/L (98-107); GLUCOSE 97 mg/dL (75-110); SODIUM 135.6 mmol/L (137-145); TOTAL PROTEIN 5.9 g/dL (6.3-8.2)
[2018-05-08] MEDS ORDERED: IBANDRONATE SODIUM 150 MG PO SCH (06:00)
[2018-05-08] MEDS ORDERED: ONDANSETRON HCL INJ/PF 4 MG/2 ML SDV IV PRN (10:30)
[2018-05-08] MEDS ORDERED: ONDANSETRON 4 MG TAB.RAPDIS PO PRN (10:30)
[2018-05-08] MEDS: LISINOPRIL 10 MG TABLET PO SCH (10:35)
[2018-05-08] MEDS: METOPROLOL SUCCINATE 25 MG TAB.SR.24H PO SCH (10:35)
[2018-05-08] MEDS: FAMOTIDINE 20 MG TABLET PO SCH ×2 (10:35→21:23)
[2018-05-08] MEDS: CALCIUM CARBONATE 500 MG TABLET PO SCH (10:35)
[2018-05-08] MEDS: DOCUSATE SODIUM 100 MG CAPSULE PO SCH ×2 (10:35→17:19)
[2018-05-08] MEDS: MAGNESIUM HYDROXIDE SUSP 30 ML UDCUP PO PRN (10:36)
[2018-05-08] MEDS: FLUTICASONE NASAL SPRAY 50 MCG/SPRY 120 SPRAY/16 GM NAREB SCH ×2 (10:36→21:23)
[2018-05-08] MEDS: LIDOCAINE 5% (700 MG) TRANSDERMAL ADH..PATCH TP SCH (11:00)
[2018-05-08] MEDS: LORAZEPAM 0.5 MG TABLET PO PRN ×2 (11:00→21:29)
--- NOTE | 2018-05-08 11:36 | RADIOLOGY REPORT (SQ) ---
EXAM DESCRIPTION: HIP RIGHT AP/LATERAL COMPLETED DATE/TIME: 05/08/2018 10:21 am REASON FOR STUDY: Rt Hip pain COMPARISON: None. NUMBER OF VIEWS: Two views. TECHNIQUE: AP pelvis and additional frog-leg view of the right hip. LIMITATIONS: None. FINDINGS: MINERALIZATION: Normal. RIGHT HIP: No fracture or dislocation. No worrisome bone lesions. Age-appropriate joint space narro wing with mild bony spurring LEFT HIP: No fracture or dislocation. No worrisome bone lesions. Age-appropriate joint space narrow ing with mild bony spurring PUBIS AND ISCHIUM: No fracture. PELVIS: No fracture. SACRUM: No fracture or dislocation. No worrisome bone lesions. LOWER LUMBAR SPINE: L4-5 fusion hardware. SOFT TISSUES: No findings. OTHER: Clips right lower quadrant. IMPRESSION: No acute fracture or malalignment right hip. Visualized bony pelvis intact TECHNICAL DOCUMENTATION: JOB ID: [id number] [employer]- All Rights Reserved Reading location - IP/workstation name: [email or web address]
--- NOTE | 2018-05-08 15:55 | PDOC PROGRESS REPORT ---
Subjective Progress Note for:: 05/08/18 Subjective:: SAVAGE MCGEE is a 73 year old female who presents the emergency room with a 4-week history of balance disturbance and an acute syncopal episode x1 on the morning of 05/05/2018. She admits that for the last month she has been having difficulty with her balance and that she seems to constantly be off balance especially when she is trying to walk or stand. She is not sure that she always seems to fall to the left but it seems that is the way she usually falls. She has incurred several skin tears of her upper extremities in these numerous falls. He is being seen by Dr. Terrell who is evaluating pain in her right shoulder and arm and has found a cyst in her neck that is putting pressure on her spine with a recent MRI. On the day of admission she fell first in the kitchen and on that occasion she lost consciousness before she fell to the floor, her second fall was down several stairs but she was not unconscious at the time of that fall. She complains of numerous aches and pains that have developed since the time of the fall down the stairs. These include pain in her right groin, in the back of her head, in her right neck and shoulder and in her right chest laterally. She rates the pains as moderate and denies radiation from any of the areas of pain. She denies prior syncopal episodes and has not identified any aggravating or ameliorating factor for her syncope. In the emergency room she was found to have a negative CT scan of the head and chest x- ray showed rib fractures of the eighth and ninth right ribs. Because of patient's syncopal episode she was admitted for further evaluation and treatment. No acute events overnight. Late morning today patient was trying to get out of the bed and turn on the light and she states she tripped and fell, hitting left side of her head on the arm of the chair denies denies any preceding vertigo, lightheadedness, chest pain, palpitation prior to the fall. Her anxiety much improved since admission, her groin pain also has improved. She had physical therapy today was able to walk with the help of front-wheeled walker. Her home physical therapy was recommended. I had 2 encounters with the patient today on my both encounters patient very pleasant, comfortably sitting in her chair, in no apparent distress, her anxiety has much improved, acquiring about when she can go home. Denies any chest pain, shortness of breath, nausea, vomiting, diarrhea, constipation or any urinary symptoms. MRI head was negative for any acute stroke, Doppler negative for any hemodynamically significant stenosis. Pending 2D echo. No acute events overnight. No recurrence of vertigo or dizziness. Patient is stating she is feeling much better however she feels unsteady on her feet. Still complaining of right groin pain worse on extension of her left right upper extremity. Headache has resolved and today she is complaining of right posterior rib pain where she had rib fractures. Some blood pressure not optimized. Systolic blood pressure 160-170. Fever, chills, nausea, vomiting, shortness of breath, chest pain, abdominal pain, diarrhea, constipation or any urinary symptoms. Reason For Visit: SYNCOPAL EPISODE Physical Exam Vital Signs: Temp Pulse Resp BP Pulse Ox 98.5 F 95 22 H 157/75 H 97 05/08/18 12:27 05/08/18 12:27 05/08/18 12:27 05/08/18 12:27 05/08/18 12:27 Intake & Output 05/07/18 05/08/18 05/09/18 06:59 06:59 06:59 Intake Total 1087.5 320 Balance 1087.5 320 Weight 46 kg Results Laboratory Results: 05/08/18 04:32 05/08/18 04:32 05/08/18 05/08/18 04:32 04:32 WBC 6.0 RBC 4.39 Hgb 12.8 Hct 37.1 MCV 84 MCH 29.2 MCHC 34.6 RDW 12.9 Plt Count 181 Seg Neutrophils % 61.6 Lymphocytes % 17.5 Monocytes % 18.3 H Eosinophils % 1.9 Basophils % 0.7 Absolute Neutrophils 3.7 Absolute Lymphocytes 1.0 Absolute Monocytes 1.1 Absolute Eosinophils 0.1 Absolute Basophils 0.0 Sodium 135.6 L Potassium 5.0 Chloride 101 Carbon Dioxide 27 Anion Gap 8 BUN 15 Creatinine 0.89 Est GFR ( Amer) > 60 Est GFR (Non-Af Amer) > 60 Glucose 97 Calcium 10.4 H Magnesium 2.4 H Total Bilirubin 0.8 AST 58 H ALT 40 Alkaline Phosphatase 48 Total Protein 5.9 L Albumin 3.8 05/05/18 05/05/18 05/06/18 22:45 22:45 02:00 Creatine Kinase 105 CK-MB (CK-2) 1.57 Troponin I < 0.012 0.013 05/06/18 05/06/18 05/06/18 04:35 04:35 09:32 Creatine Kinase 381 H 409 H CK-MB (CK-2) 2.63 Troponin I 0.015 05/06/18 05/06/18 05/06/18 09:32 16:05 16:05 Creatine Kinase 430 H CK-MB (CK-2) 2.67 2.58 Troponin I 0.025 0.021 Impressions: Head CT 05/05/18 21:50 IMPRESSION: No acute intracranial findings. Ribs w/Chest X-Ray 05/05/18 21:50 FINDINGS/IMPRESSION: There are nondisplaced fractures of the right eighth and ninth posterolateral ribs. The surrounding lungs are clear. No pneumothorax or pleural effusions are seen. IMPRESSION: Nondisplaced fractures of the right eighth and ninth posterolateral ribs. Carotid Doppler Study 05/06/18 00:00 IMPRESSION: NO HEMODYNAMICALLY SIGNIFICANT STENOSIS. Head MRI 05/07/18 00:00 IMPRESSION: Mild chronic microvascular ischemia with no acute intracranial imaging findings. Mild right maxillary sinus disease. EVIDENCE OF ACUTE STROKE: NO. Hip/Pelvis X-Ray 05/08/18 00:00 IMPRESSION: No acute fracture or malalignment right hip. Visualized bony pelvis intact Assessment & Plan - Diagnosis (1) Hypertension Is this a current diagnosis for this admission?: Yes Plan: Not optimized. SBP 150-170 Increase lisinopril to 40 mg daily. Continue metoprolol. Adjust meds as needed. (2) Syncope and collapse Is this a current diagnosis for this admission?: Yes Plan: MRI brain and carotid Doppler negative for any acute abnormalities. 05/08/2018 2D echo normal left ventricular ejection fraction. No thrombus. Continue telemetry, neurochecks and fall precautions. (3) Acute labyrinthitis Qualifiers: Laterality: unspecified laterality Qualified Code(s): H83.09 - Labyrinthitis, unspecified ear Is this a current diagnosis for this admission?: Yes Plan: Patient started on transdermal scopolamine patch. Some symptomatic relief. MRI brain negative. ENT consult if available. Otherwise patient can follow-up as outpatient with ENT. (4) Laceration of occipital region of scalp without complication Qualifiers: Encounter type: initial encounter Qualified Code(s): S01.01XA - Laceration without foreign body of scalp, initial encounter Is this a current diagnosis for this admission?: Yes Plan: Continue wound care. Supportive measures. (5) Right rib fracture Qualifiers: Encounter type: initial encounter Rib fracture type: multiple ribs Fracture type: closed Qualified Code(s): S22.41XA - Multiple fractures of ribs, right side, initial encounter for closed fracture Is this a current diagnosis for this admission?: Yes Plan: Patient was started on new pain but she said it was making her feel unwell. Patient was switched to Percocet. Started on lidocaine patch, Continue supportive measures. Continue fall precautions. (6) Skin tear Is this a current diagnosis for this admission?: Yes Plan: Patient has dressing placed on bilateral upper extremity skin tears. Wound care. Received tetanus prophylaxis in ED. (7) Anxiety Is this a current diagnosis for this admission?: Yes Plan: Much improved after restarting home meds. Patient has been chronically taking benzos for anxiety which may have contributed to her fall. Patient was advised to follow-up with PCP about possibly being weaned off of her benzodiazepines and switched to an alternative medication. (8) Rt groin pain Is this a current diagnosis for this admission?: Yes Plan: Right hip x-ray negative for any fractures or dislocations. Likely muscular caused by recent fall. On physical examination and neurovascularly intact. Mild tenderness over the medial aspect of the right upper thigh. No palpable cord, no swelling, erythema, skin tear noted. Continue physical therapy and supportive measures.
[2018-05-08] MEDS: PHARMACY COMMUNICATION ORDER MC SCH (21:27)
[2018-05-09] MEDS: OXYCODONE-ACETAMINOPHEN 5-325 MG TABLET PO PRN ×2 (02:25→21:34)
[2018-05-09] MEDS: HEPARIN SOD (PORCINE) 5,000 UNIT/ML 1 ML SYRINGE SUBCUT SCH (05:20)
[2018-05-09 08:15] LABS: ABSOLUTE EOSINOPHILS # (AUTO) 0.1 10^3/uL (0.0-0.6); ABSOLUTE LYMPHOCYTES (AUTO) 0.8 10^3/uL (0.5-4.7); ABSOLUTE MONOCYTES (AUTO) 0.7 10^3/uL (0.1-1.4); ABSOLUTE NEUT (AUTO) 3.6 10^3/uL (1.7-8.2); BASOPHILS % (AUTO) 0.7 % (0-2); EOSINOPHILS % (AUTO) 1.8 % (0-6); HEMATOCRIT 38.1 % (36.0-47.0); HEMOGLOBIN 13.1 g/dL (12.0-15.5); LYMPHOCYTES % (AUTO) 15.8 % (13-45); MEAN CORPUSCULAR HEMOGLOBIN 29.4 pg (27.0-33.4); MEAN CORPUSCULAR HGB CONC 34.5 g/dL (32.0-36.0); MEAN CORPUSCULAR VOLUME 85 fl (80-97); MONOCYTES % (AUTO) 13.8 % (3-13); PLATELET COUNT 171 10^3/uL (150-450); RED BLOOD COUNT 4.47 10^6/uL (3.72-5.28); RED CELL DISTRIBUTION WIDTH 12.8 % (11.5-14.0); SEGMENTED NEUTROPHILS % (AUTO) 67.9 % (42-78); TOTAL CELLS COUNTED % (AUTO) 100 %; WHITE BLOOD COUNT 5.2 10^3/uL (4.0-10.5)
[2018-05-09 08:28] LABS: ALANINE AMINOTRANSFERASE 59 U/L (9-52); ALBUMIN 3.7 g/dL (3.5-5.0); ALKALINE PHOSPHATASE 54 U/L (38-126); ANION GAP 8 (5-19); ASPARTATE AMINO TRANSFERASE 75 U/L (14-36); BILIRUBIN,DIRECT 0.3 mg/dL (0.0-0.4); BILIRUBIN,TOTAL 0.9 mg/dL (0.2-1.3); BLOOD UREA NITROGEN 19 mg/dL (7-20); CALCIUM 9.6 mg/dL (8.4-10.2); CARBON DIOXIDE 29 mmol/L (22-30); CHLORIDE 99 mmol/L (98-107); GLUCOSE 120 mg/dL (75-110); POTASSIUM 4.6 mmol/L (3.6-5.0); SODIUM 135.8 mmol/L (137-145); TOTAL PROTEIN 5.8 g/dL (6.3-8.2)
[2018-05-09] MEDS: DOCUSATE SODIUM 100 MG CAPSULE PO SCH ×2 (09:24→17:19)
[2018-05-09] MEDS: METOPROLOL SUCCINATE 25 MG TAB.SR.24H PO SCH (09:25)
[2018-05-09] MEDS: LISINOPRIL 10 MG TABLET PO SCH (09:25)
[2018-05-09] MEDS: FAMOTIDINE 20 MG TABLET PO SCH ×2 (09:26→21:34)
[2018-05-09] MEDS: CALCIUM CARBONATE 500 MG TABLET PO SCH (09:26)
[2018-05-09] MEDS: LIDOCAINE 5% (700 MG) TRANSDERMAL ADH..PATCH TP SCH (09:32)
[2018-05-09] MEDS: FLUTICASONE NASAL SPRAY 50 MCG/SPRY 120 SPRAY/16 GM NAREB SCH ×2 (09:33→21:34)
[2018-05-09] MEDS: LORAZEPAM 0.5 MG TABLET PO PRN ×2 (12:58→21:34)
--- NOTE | 2018-05-09 14:51 | PDOC DISCHARGE SUMMARY ---
General - Admit/Disc Date/PCP Admission Date/Primary Care Provider: 05/06/18 03:56 Discharge Date: 05/09/18 - Discharge Diagnosis (1) Anxiety Is this a current diagnosis for this admission?: Yes (3) Hypertension Is this a current diagnosis for this admission?: Yes (4) Laceration of occipital region of scalp without complication Is this a current diagnosis for this admission?: Yes (5) Right rib fracture Is this a current diagnosis for this admission?: Yes (6) Rt groin pain Is this a current diagnosis for this admission?: Yes (7) Syncope and collapse Is this a current diagnosis for this admission?: Yes - Additional Information Resuscitation Status: Full Code Prescriptions: Lorazepam [Ativan 0.5 mg Tablet] 0.5 mg PO Q8HP PRN #10 tablet PRN Reason: Anxiety Oxycodone HCl/Acetaminophen [Percocet 5-325 mg Tablet] 1 tab PO Q6HP PRN #15 tablet PRN Reason: Home Medications: Calcium Carbonate [Os-Mina 500 mg Tablet (Oyster-Shell)] 500 mg PO DAILY 05/06/18 Carboxymethylcellulose Sodium [Refresh Plus 0.5% Oph Soln 0.4 ml [place]] 1 drop OU QIDP PRN 05/06/18 Fluticasone Propionate [Flonase Nasal [place] 50 Mcg/[place] 16 gm] 1 spray NAREB BID 05/06/18 Ibandronate Sodium [Boniva] 150 mg PO .QMONTHLY 05/06/18 Ibuprofen [Motrin 600 mg Tablet] 600 mg PO Q8HP PRN 05/06/18 Metoprolol Succinate [Toprol Xl 25 mg Tab.sr] 25 mg PO DAILY 05/06/18 Montelukast Sodium [Singulair 10 mg Tablet] 10 mg PO HSP PRN 05/06/18 Acetaminophen [Tylenol 325 mg Tablet] 650 mg PO Q4HP PRN tablet 05/09/18 Lisinopril [Prinivil 10 mg Tablet] 40 mg PO DAILY tablet 05/09/18 Lorazepam [Ativan 0.5 mg Tablet] 0.5 mg PO Q8HP PRN #10 tablet 05/09/18 Mag Hydrox/Al Hydrox/Simeth [Maalox Plus Susp 30 Udcup] 30 ml PO Q6HP PRN udc 05/09/18 Oxycodone HCl/Acetaminophen [Percocet 5-325 mg Tablet] 1 tab PO Q6HP PRN #15 tablet 05/09/18 History of Present Illness History of Present Illness: per admitting physician- Dr Metzger: "SAVAGE MCGEE is a 73 year old female who presents the emergency room with a 4-week history of balance disturbance and an acute syncopal episode x1 on the morning of 05/05/2018. She admits that for the last month she has been having difficulty with her balance and that she seems to constantly be off balance especially when she is trying to walk or stand. She is not sure that she always seems to fall to the left but it seems that is the way she usually falls. She has incurred several skin tears of her upper extremities in these numerous falls. He is being seen by Dr. Terrell who is evaluating pain in her right shoulder and arm and has found a cyst in her neck that is putting pressure on her spine with a recent MRI. On the day of admission she fell first in the kitchen and on that occasion she lost consciousness before she fell to the floor, her second fall was down several stairs but she was not unconscious at the time of that fall. She complains of numerous aches and pains that have developed since the time of the fall down the stairs. These include pain in her right groin, in the back of her head, in her right neck and shoulder and in her right chest laterally. She rates the pains as moderate and denies radiation from any of the areas of pain. She denies prior syncopal episodes and has not identified any aggravating or ameliorating factor for her syncope. In the emergency room she was found to have a negative CT scan of the head and chest x- ray showed rib fractures of the eighth and ninth right ribs. Because of patient's syncopal episode she was admitted for further evaluation and treatment." Hospital Course Hospital Course: after admission she had MRI brain, CT head, U/S carotid and ECHO regarding her syncope- all WNL. MRI showed chronic microvascular changes. Xray showed right 8th and 9th rib fx she did fall yesterday again the hospital- Xray hip right and left showed on fx spoke with patient first time today as i am assuming care. tells me she's been falling - multiple falls at home. cardiology wants a 30 day event monitor. patient feels its her legs that are week. i think at this time less than 30 days of rehab will help strengthen patients ability to ambulate. she's also supposed to be using a walker but she hasn't been. i have advised her to today she c/o congestion - i checked her ears- left cerumen impaction- right partial impaction- unable to visualize TM- she may benefit form ENT consultation outpatient. HTN- lisinopril increase while in hospital- needs to be monitored has posterior scalp laceration- needs to follow up right inner thigh ?pain- none on exam but likely MSK due to fall. Physical Exam Vital Signs: Temp Pulse Resp BP Pulse Ox 98.1 F 92 17 142/86 H 98 05/09/18 11:00 05/09/18 11:00 05/09/18 11:00 05/09/18 11:00 05/09/18 11:00 Intake & Output 05/08/18 05/09/18 05/10/18 06:59 06:59 06:59 Intake Total 320 756 Balance 320 756 Weight 101 lb 6.602 oz 99 lb 13.91 oz General appearance: PRESENT: no acute distress Head exam: PRESENT: normocephalic, other - posterior midline scalp with healing wound noted Eye exam: PRESENT: EOMI. ABSENT: conjunctival injection, scleral icterus Ear exam: PRESENT: normal external ear exam Mouth exam: PRESENT: moist, tongue midline Neck exam: ABSENT: tracheal deviation Respiratory exam: PRESENT: decreased breath sounds, symmetrical Cardiovascular exam: PRESENT: +S1, +S2 Pulses: PRESENT: +2 pedal pulses bilateral GI/Abdominal exam: PRESENT: normal bowel sounds, soft. ABSENT: tenderness Extremities exam: ABSENT: pedal edema Neurological exam: PRESENT: alert, awake, oriented to person, oriented to place, CN II-XII grossly intact Skin exam: PRESENT: dry, warm, other - ecchymosis in multiple different parts of her body- arms, ribs, left hip Results Laboratory Results: 05/09/18 07:04 05/09/18 07:04 05/09/18 05/09/18 07:04 07:04 WBC 5.2 RBC 4.47 Hgb 13.1 Hct 38.1 MCV 85 MCH 29.4 MCHC 34.5 RDW 12.8 Plt Count 171 Seg Neutrophils % 67.9 Lymphocytes % 15.8 Monocytes % 13.8 H Eosinophils % 1.8 Basophils % 0.7 Absolute Neutrophils 3.6 Absolute Lymphocytes 0.8 Absolute Monocytes 0.7 Absolute Eosinophils 0.1 Absolute Basophils 0.0 Sodium 135.8 L Potassium 4.6 Chloride 99 Carbon Dioxide 29 Anion Gap 8 BUN 19 Creatinine 0.92 Est GFR ( Amer) > 60 Est GFR (Non-Af Amer) > 60 Glucose 120 H Calcium 9.6 Magnesium 2.5 H Total Bilirubin 0.9 AST 75 H ALT 59 H Alkaline Phosphatase 54 Total Protein 5.8 L Albumin 3.7 05/05/18 05/05/18 05/06/18 22:45 22:45 02:00 Creatine Kinase 105 CK-MB (CK-2) 1.57 Troponin I < 0.012 0.013 05/06/18 05/06/18 05/06/18 04:35 04:35 09:32 Creatine Kinase 381 H 409 H CK-MB (CK-2) 2.63 Troponin I 0.015 05/06/18 05/06/18 05/06/18 09:32 16:05 16:05 Creatine Kinase 430 H CK-MB (CK-2) 2.67 2.58 Troponin I 0.025 0.021 Impressions: Head CT 05/05/18 21:50 IMPRESSION: No acute intracranial findings. Ribs w/Chest X-Ray 05/05/18 21:50 FINDINGS/IMPRESSION: There are nondisplaced fractures of the right eighth and ninth posterolateral ribs. The surrounding lungs are clear. No pneumothorax or pleural effusions are seen. IMPRESSION: Nondisplaced fractures of the right eighth and ninth posterolateral ribs. Carotid Doppler Study 05/06/18 00:00 IMPRESSION: NO HEMODYNAMICALLY SIGNIFICANT STENOSIS. Head MRI 05/07/18 00:00 IMPRESSION: Mild chronic microvascular ischemia with no acute intracranial imaging findings. Mild right maxillary sinus disease. EVIDENCE OF ACUTE STROKE: NO. Hip/Pelvis X-Ray 05/08/18 00:00 IMPRESSION: No acute fracture or malalignment right hip. Visualized bony pelvis intact Qualifiers - * PATIENT BEING DISCHARGED WITH ANY OF THE FOLLOWING DIAGNOSIS: No Plan Time Spent: Greater than 30 Minutes
--- NOTE | 2018-05-09 15:09 | RADIOLOGY REPORT (SQ) ---
EXAM DESCRIPTION: HIP LEFT AP/LATERAL COMPLETED DATE/TIME: 05/09/2018 3:02 pm REASON FOR STUDY: left hip pain s/p fall COMPARISON: None. NUMBER OF VIEWS: Two views. TECHNIQUE: AP and frog-leg view of the left hip. LIMITATIONS: None. FINDINGS: MINERALIZATION: Normal. LEFT HIP: No fracture or dislocation. No worrisome bone lesions. OPPOSITE HIP: No fracture or dislocation. No worrisome bone lesions. SOFT TISSUES: No findings. OTHER: There are postsurgical changes in the lumbar spine. IMPRESSION: NEGATIVE STUDY OF THE LEFT HIP. NO RADIOGRAPHIC EVIDENCE OF ACUTE INJURY. COMMENT: Pelvic fractures are often occult on plain radiographs. If strong clinical suspicion for f racture, recommend CT or MR. TECHNICAL DOCUMENTATION: JOB ID: [id number] [employer]- All Rights Reserved Reading location - IP/workstation name: [email or web address]
[2018-05-09] MEDS: PHARMACY COMMUNICATION ORDER MC SCH (21:31)
[2018-05-10] MEDS: OXYCODONE-ACETAMINOPHEN 5-325 MG TABLET PO PRN (05:10)
[2018-05-10] MEDS: LISINOPRIL 10 MG TABLET PO SCH (09:50)
[2018-05-10] MEDS: DOCUSATE SODIUM 100 MG CAPSULE PO SCH ×2 (09:50→18:54)
[2018-05-10] MEDS: CALCIUM CARBONATE 500 MG TABLET PO SCH (09:50)
[2018-05-10] MEDS: METOPROLOL SUCCINATE 25 MG TAB.SR.24H PO SCH (09:51)
[2018-05-10] MEDS: FAMOTIDINE 20 MG TABLET PO SCH ×2 (09:51→21:29)
[2018-05-10] MEDS: LIDOCAINE 5% (700 MG) TRANSDERMAL ADH..PATCH TP SCH (09:52)
[2018-05-10] MEDS: FLUTICASONE NASAL SPRAY 50 MCG/SPRY 120 SPRAY/16 GM NAREB SCH ×2 (09:53→21:28)
[2018-05-10] MEDS: LORAZEPAM 0.5 MG TABLET PO PRN ×2 (11:41→21:29)
--- NOTE | 2018-05-10 18:29 | PDOC PROGRESS REPORT ---
Subjective Progress Note for:: 05/10/18 Subjective:: saw patient this morning - her d/c plans did not work out- bed is not ready at rehab- will have to stay till Saturday- she has no complaints at this time Reason For Visit: SYNCOPAL EPISODE Physical Exam Vital Signs: Temp Pulse Resp BP Pulse Ox 99.0 F 85 18 143/76 H 97 05/10/18 15:43 05/10/18 15:43 05/10/18 15:43 05/10/18 15:43 05/10/18 15:43 Intake & Output 05/09/18 05/10/18 05/11/18 06:59 06:59 06:59 Intake Total 756 2360 500 Balance 756 2360 500 Weight 99 lb 13.91 oz 100 lb 8.493 oz General appearance: PRESENT: no acute distress Head exam: PRESENT: normocephalic, other - posterior scalp with repair laceration noted Eye exam: PRESENT: EOMI Ear exam: PRESENT: normal external ear exam Neck exam: ABSENT: tracheal deviation Respiratory exam: PRESENT: clear to auscultation libia, symmetrical Cardiovascular exam: PRESENT: +S1, +S2 Pulses: PRESENT: +2 pedal pulses bilateral GI/Abdominal exam: PRESENT: normal bowel sounds, soft. ABSENT: tenderness Musculoskeletal exam: PRESENT: tenderness - TTP of right ribs posteriorly Neurological exam: PRESENT: alert, awake, oriented to time, CN II-XII grossly intact Skin exam: PRESENT: dry, warm, other - ecchymosis noted on arms and torso Results Laboratory Results: 05/09/18 07:04 05/09/18 07:04 05/05/18 05/05/18 05/06/18 22:45 22:45 02:00 Creatine Kinase 105 CK-MB (CK-2) 1.57 Troponin I < 0.012 0.013 05/06/18 05/06/18 05/06/18 04:35 04:35 09:32 Creatine Kinase 381 H 409 H CK-MB (CK-2) 2.63 Troponin I 0.015 05/06/18 05/06/18 05/06/18 09:32 16:05 16:05 Creatine Kinase 430 H CK-MB (CK-2) 2.67 2.58 Troponin I 0.025 0.021 Impressions: Head CT 05/05/18 21:50 IMPRESSION: No acute intracranial findings. Ribs w/Chest X-Ray 05/05/18 21:50 FINDINGS/IMPRESSION: There are nondisplaced fractures of the right eighth and ninth posterolateral ribs. The surrounding lungs are clear. No pneumothorax or pleural effusions are seen. IMPRESSION: Nondisplaced fractures of the right eighth and ninth posterolateral ribs. Carotid Doppler Study 05/06/18 00:00 IMPRESSION: NO HEMODYNAMICALLY SIGNIFICANT STENOSIS. Head MRI 05/07/18 00:00 IMPRESSION: Mild chronic microvascular ischemia with no acute intracranial imaging findings. Mild right maxillary sinus disease. EVIDENCE OF ACUTE STROKE: NO. Hip/Pelvis X-Ray 05/08/18 00:00 IMPRESSION: No acute fracture or malalignment right hip. Visualized bony pelvis intact Hip X-Ray 05/09/18 00:00 IMPRESSION: NEGATIVE STUDY OF THE LEFT HIP. NO RADIOGRAPHIC EVIDENCE OF ACUTE INJURY. Assessment & Plan - Diagnosis (1) Anxiety Is this a current diagnosis for this admission?: Yes (2) Closed head injury Qualifiers: Encounter type: initial encounter Qualified Code(s): S09.90XA - Unspecified injury of head, initial encounter Is this a current diagnosis for this admission?: Yes (3) Hypertension Is this a current diagnosis for this admission?: Yes (4) Laceration of occipital region of scalp without complication Qualifiers: Encounter type: initial encounter Qualified Code(s): S01.01XA - Laceration without foreign body of scalp, initial encounter Is this a current diagnosis for this admission?: Yes (5) Right rib fracture Qualifiers: Encounter type: initial encounter Rib fracture type: multiple ribs Fracture type: closed Qualified Code(s): S22.41XA - Multiple fractures of ribs, right side, initial encounter for closed fracture Is this a current diagnosis for this admission?: Yes (6) Rt groin pain Is this a current diagnosis for this admission?: Yes (7) Syncope and collapse Is this a current diagnosis for this admission?: Yes - Plan Summary Plan Summary: d/c plans got cancelled per CM since bed was not ready on saturday- she will have to wait until Saturday. c/w current management
[2018-05-10] MEDS: PHARMACY COMMUNICATION ORDER MC SCH (21:32)
[2018-05-11] MEDS: FLUTICASONE NASAL SPRAY 50 MCG/SPRY 120 SPRAY/16 GM NAREB SCH ×2 (09:42→21:21)
[2018-05-11] MEDS: CALCIUM CARBONATE 500 MG TABLET PO SCH (09:43)
[2018-05-11] MEDS: LISINOPRIL 10 MG TABLET PO SCH (09:43)
[2018-05-11] MEDS: LIDOCAINE 5% (700 MG) TRANSDERMAL ADH..PATCH TP SCH (09:43)
[2018-05-11] MEDS: FAMOTIDINE 20 MG TABLET PO SCH ×2 (09:44→21:20)
[2018-05-11] MEDS: DOCUSATE SODIUM 100 MG CAPSULE PO SCH ×2 (09:44→17:42)
[2018-05-11] MEDS: LORAZEPAM 0.5 MG TABLET PO PRN (10:41)
[2018-05-11] MEDS: METOPROLOL SUCCINATE 25 MG TAB.SR.24H PO SCH (10:41)
--- NOTE | 2018-05-11 13:40 | PDOC PROGRESS REPORT ---
Subjective Progress Note for:: 05/11/18 Subjective:: No new complaints this morning. States that her right thigh still hurts. She tells me that she cannot wait to go to rehab. Reason For Visit: SYNCOPAL EPISODE Physical Exam Vital Signs: Temp Pulse Resp BP Pulse Ox 98.5 F 101 H 16 155/86 H 100 05/11/18 10:51 05/11/18 10:51 05/11/18 10:51 05/11/18 10:51 05/11/18 10:51 Intake & Output 05/10/18 05/11/18 05/12/18 06:59 06:59 06:59 Intake Total 2360 1010 Balance 2360 1010 Weight 100 lb 8.493 oz 102 lb 1.184 oz General appearance: PRESENT: no acute distress Head exam: PRESENT: atraumatic, normocephalic Eye exam: PRESENT: EOMI Ear exam: PRESENT: normal external ear exam Neck exam: ABSENT: tracheal deviation Respiratory exam: PRESENT: clear to auscultation libia, symmetrical Cardiovascular exam: PRESENT: +S1, +S2 Results Laboratory Results: 05/09/18 07:04 05/09/18 07:04 05/05/18 05/05/18 05/06/18 22:45 22:45 02:00 Creatine Kinase 105 CK-MB (CK-2) 1.57 Troponin I < 0.012 0.013 05/06/18 05/06/18 05/06/18 04:35 04:35 09:32 Creatine Kinase 381 H 409 H CK-MB (CK-2) 2.63 Troponin I 0.015 05/06/18 05/06/18 05/06/18 09:32 16:05 16:05 Creatine Kinase 430 H CK-MB (CK-2) 2.67 2.58 Troponin I 0.025 0.021 Impressions: Head CT 05/05/18 21:50 IMPRESSION: No acute intracranial findings. Ribs w/Chest X-Ray 05/05/18 21:50 FINDINGS/IMPRESSION: There are nondisplaced fractures of the right eighth and ninth posterolateral ribs. The surrounding lungs are clear. No pneumothorax or pleural effusions are seen. IMPRESSION: Nondisplaced fractures of the right eighth and ninth posterolateral ribs. Carotid Doppler Study 05/06/18 00:00 IMPRESSION: NO HEMODYNAMICALLY SIGNIFICANT STENOSIS. Head MRI 05/07/18 00:00 IMPRESSION: Mild chronic microvascular ischemia with no acute intracranial imaging findings. Mild right maxillary sinus disease. EVIDENCE OF ACUTE STROKE: NO. Hip/Pelvis X-Ray 05/08/18 00:00 IMPRESSION: No acute fracture or malalignment right hip. Visualized bony pelvis intact Hip X-Ray 05/09/18 00:00 IMPRESSION: NEGATIVE STUDY OF THE LEFT HIP. NO RADIOGRAPHIC EVIDENCE OF ACUTE INJURY. Assessment & Plan - Diagnosis (1) Anxiety Is this a current diagnosis for this admission?: Yes (2) Closed head injury Qualifiers: Encounter type: initial encounter Qualified Code(s): S09.90XA - Unspecified injury of head, initial encounter Is this a current diagnosis for this admission?: Yes (3) Hypertension Is this a current diagnosis for this admission?: Yes (4) Laceration of occipital region of scalp without complication Qualifiers: Encounter type: initial encounter Qualified Code(s): S01.01XA - Laceration without foreign body of scalp, initial encounter Is this a current diagnosis for this admission?: Yes (5) Right rib fracture Qualifiers: Encounter type: initial encounter Rib fracture type: multiple ribs Fracture type: closed Qualified Code(s): S22.41XA - Multiple fractures of ribs, right side, initial encounter for closed fracture Is this a current diagnosis for this admission?: Yes (6) Rt groin pain Is this a current diagnosis for this admission?: Yes (7) Syncope and collapse Is this a current diagnosis for this admission?: Yes - Plan Summary Plan Summary: She was discharged on 05/09/18 but unfortunately the bed was not ready at [facility]. So she will wait in the weekend until she can go tomorrow.
[2018-05-11] MEDS: ACETAMINOPHEN 325 MG TABLET PO PRN (15:20)
[2018-05-11] MEDS: OXYCODONE-ACETAMINOPHEN 5-325 MG TABLET PO PRN (21:20)
[2018-05-11] MEDS: PHARMACY COMMUNICATION ORDER MC SCH (21:22)
[2018-05-12] MEDS: OXYCODONE-ACETAMINOPHEN 5-325 MG TABLET PO PRN (05:40)
[2018-05-12 08:30] VITALS: BP 147/74
[2018-05-12] MEDS: DOCUSATE SODIUM 100 MG CAPSULE PO SCH (09:01)
[2018-05-12] MEDS: FLUTICASONE NASAL SPRAY 50 MCG/SPRY 120 SPRAY/16 GM NAREB SCH (09:08)
[2018-05-12] MEDS: LIDOCAINE 5% (700 MG) TRANSDERMAL ADH..PATCH TP SCH (09:08)
[2018-05-12] MEDS: METOPROLOL SUCCINATE 25 MG TAB.SR.24H PO SCH (09:09)
[2018-05-12] MEDS: LISINOPRIL 10 MG TABLET PO SCH (09:09)
[2018-05-12] MEDS: FAMOTIDINE 20 MG TABLET PO SCH (09:09)
[2018-05-12] MEDS: CALCIUM CARBONATE 500 MG TABLET PO SCH (09:09)
--- NOTE | 2018-05-12 11:05 | Progress Note ---
Provider Note Provider Note: patient has a bed available today and will be going to [facility] today. she was d/c on 05/09 but it was held up due to bed availability. i briefly spoke with patient today. i did not examine her today. she had no acute complaints today. no charge for today's brief encounter
[2018-05-12] MEDS: LORAZEPAM 0.5 MG TABLET PO PRN (13:42)
== END 2018-05-12 16:00 | DRG 312 ==
LOC: ER 20:56 → EH 05-06 03:56 → 3S 05-06 05:47 → 4N 05-07 02:30
PROVIDERS: ADMIT Emergency Medicine; ATTEND Emergency Medicine
PROC: 3E0234Z Introduction of Serum, Toxoid and Vaccine into Muscle, Percutaneous Approach (ICD-10-PCS; principal; 2018-05-05)
DX: R55 Syncope and collapse (principal); S22.41XA Multiple fractures of ribs, right side, initial encounter for closed fracture; T42.4X5A Adverse effect of benzodiazepines, initial encounter; I10 Essential (primary) hypertension; S09.90XA Unspecified injury of head, initial encounter; S01.01XA Laceration without foreign body of scalp, initial encounter; R10.30 Lower abdominal pain, unspecified; R29.6 Repeated falls; H61.23 Impacted cerumen, bilateral; Y92.010 Kitchen of single-family (private) house as the place of occurrence of the external cause; W10.9XXA Fall (on) (from) unspecified stairs and steps, initial encounter; Y92.019 Unspecified place in single-family (private) house as the place of occurrence of the external cause; M54.12 Radiculopathy, cervical region; F41.1 Generalized anxiety disorder; Z90.49 Acquired absence of other specified parts of digestive tract; Z96.652 Presence of left artificial knee joint; H83.09 Labyrinthitis, unspecified ear; S41.112A Laceration without foreign body of left upper arm, initial encounter; S41.111A Laceration without foreign body of right upper arm, initial encounter; W01.190A Fall on same level from slipping, tripping and stumbling with subsequent striking against furniture, initial encounter; Y92.230 Patient room in hospital as the place of occurrence of the external cause; Z75.1 Person awaiting admission to adequate facility elsewhere; Z91.81 History of falling; Z23 Encounter for immunization; Z87.891 Personal history of nicotine dependence; Z88.0 Allergy status to penicillin; Z88.2 Allergy status to sulfonamides; Z79.899 Other long term (current) drug therapy; Z82.49 Family history of ischemic heart disease and other diseases of the circulatory system
CPT/HCPCS: 36415; 70450; 70553; 80053; 80061; 81001; 82550; 82553; 83036; 83735; 84439; 84443; 84481; 84484; 85025; 85610; 90471; 90715; 93005; 93010; 93306; 93880; 96360; 96361; 96365; 99285; A9576; J0690; J1644; J2300; J2405; J3480; J3490; J7030